=== PATIENT | female | born 1945 | race Caucasian/White ===

== ENCOUNTER → 2018-01-28 | Outpatient (CLI) | payer MEDICARE, BC | END | disposition home or self-care (01) | LOC: CFH 10:06 | PROVIDERS: ATTEND Licensed Practical Nurse | DX: Z12.31 Encounter for screening mammogram for malignant neoplasm of breast (principal) | CPT/HCPCS: 77067 ==

== ENCOUNTER → 2018-03-31 | Outpatient (CLI) | payer MEDICARE, BC | END | disposition home or self-care (01) | LOC: CFH 14:26 | PROVIDERS: ATTEND Licensed Practical Nurse | DX: N60.02 Solitary cyst of left breast (principal); N63.20 Unspecified lump in the left breast, unspecified quadrant | CPT/HCPCS: 77065 ==

== ENCOUNTER 2019-04-04 09:33 | Outpatient (CLI) | payer MEDICARE, BC, OTHER | END 2019-04-04 23:59 | disposition home or self-care (01) | LOC: CFH 09:33 | PROVIDERS: ATTEND Licensed Practical Nurse | DX: Z12.31 Encounter for screening mammogram for malignant neoplasm of breast (principal); M85.9 Disorder of bone density and structure, unspecified; N95.8 Other specified menopausal and perimenopausal disorders | CPT/HCPCS: 77063; 77067; 77080 ==

== ENCOUNTER → 2020-05-27 | Outpatient (CLI) | payer MEDICARE, BC, OTHER | END | disposition home or self-care (01) | LOC: CFH 14:54 | PROVIDERS: ATTEND Family Medicine | DX: Z12.31 Encounter for screening mammogram for malignant neoplasm of breast (principal) | CPT/HCPCS: 77063; 77067 ==